=== PATIENT | female | born 1950 ===

== ENCOUNTER 2020-03-10 11:15 | Inpatient (IN) | payer OTHER ==
[~2020-03-10] VITALS: Ht 157.5 cm; Wt 72.6 kg
[2020-03-10] MEDS ORDERED: PEPCID AC20 MG PO (17:45)
[2020-03-10] MEDS ORDERED: ZESTRIL20 MG PO (17:45)
[2020-03-10] MEDS ORDERED: BREO ELLIPTA I1 EACH IH (17:45)
[2020-03-10] MEDS ORDERED: ALLEGRA-D 12 H1 EACH PO (17:45)
[2020-03-10] MEDS ORDERED: PROAIR HFA8.5 GM IH (17:46)
[2020-03-10] MEDS ORDERED: PROTONIX40 MG PO (17:46)
[2020-03-10] MEDS ORDERED: FLONASE16 GM (17:46)
[2020-03-21] MEDS ORDERED: INTESTINEX680 M1 PO (12:18)
[2020-03-21] MEDS ORDERED: PROTONIX40 MG PO (12:18)
[2020-03-21] MEDS ORDERED: HYOSCYAMINE0.125 M1 SL (12:18)
[2020-03-21] MEDS ORDERED: PEPCID AC20 MG PO (12:19)
[2020-03-21] MEDS ORDERED: OXYC1TAB9 PO (12:19)
== END 2020-03-21 13:19 | disposition home or self-care (01) | DRG 331 ==
LOC: O/R 03-17 07:46 → SURH 03-17 07:46
PROVIDERS: ADMIT Surgery; ATTEND Surgery
PROC: 0DBN4ZZ Excision of Sigmoid Colon, Percutaneous Endoscopic Approach (ICD-10-PCS; 2020-03-17)
PROC: 0DJD8ZZ Inspection of Lower Intestinal Tract, Via Natural or Artificial Opening Endoscopic (ICD-10-PCS; 2020-03-17)
PROC: 0DTP4ZZ Resection of Rectum, Percutaneous Endoscopic Approach (ICD-10-PCS; principal; 2020-03-17 08:30)
DX: K57.30 Diverticulosis of large intestine without perforation or abscess without bleeding (principal); J45.20 Mild intermittent asthma, uncomplicated; I11.9 Hypertensive heart disease without heart failure